=== PATIENT | male | born 1985 | race Caucasian/White ===

== ENCOUNTER 2018-01-17 01:41 | Emergency (ER) | payer OTHER ==
[2018-01-17] MEDS ORDERED: Morphine 10 MG/ML VIAL ONE (02:07)
[2018-01-17] MEDS ORDERED: Tamsulosin HCl 0.4 MG CAP ONE (02:08)
[2018-01-17] MEDS ORDERED: Ketorolac Tromethamine 30 MG/ML VIAL ONE (02:08)
[2018-01-17] MEDS ORDERED: Promethazine HCl 25 MG/ML VIAL ONE (02:08)
[2018-01-17] MEDS ORDERED: Morphine 4 MG/ML VIAL ONE (02:58)
[2018-01-17] MEDS ORDERED: Phenazopyridine HCl 97.5 MG TABLET ONE (03:12)
[2018-01-17] MEDS ORDERED: HYDROcodone/Acetaminophen 10/325 mg Tablet ONE (03:12)
== END 2018-01-17 03:17 | disposition home or self-care (01) ==
LOC: MADERS 01:41
DX: N20.0 Calculus of kidney (principal); Z79.899 Other long term (current) drug therapy
CPT/HCPCS: 96374; 96375; 96376; J1885; J2270; J2550